=== PATIENT | female | born 1995 | race American Indian/Alaskan Native ===

== ENCOUNTER 2020-08-23 11:55 | Emergency (ER) | payer MEDICAID ==
--- NOTE | 2020-08-23 12:08 | Emergency Department Report ---
Blank Doc - Documentation Documentation: 25-year-old female that presents with vaginal bleeding and pelvic pain. Stated is 6 weeks . This initial assessment/diagnostic orders/clinical plan/treatment(s) is/are subject to change based on patient's health status, clinical progression and re- assessment by fellow clinical providers in the ED. Further treatment and workup at subsequent clinical providers discretion. Patient/guardians urged not to elope from the ED as their condition may be serious if not clinically assessed and managed. Initial orders include: 1- Patient sent to [facility] for further evaluation and treatment 2- labs 3- UA
[2020-08-23 12:11] VITALS: BP 117/78
[2020-08-23 12:58] LABS: Basophils # (Auto) 0.1 K/mm3 (0.0-0.1); Basophils % (Auto) 0.8 % (0.0-1.8); Eosinophils % (Auto) 0.5 % (0.0-4.3); Hematocrit 39.9 % (30.3-42.9); Hemoglobin 13.5 gm/dl (10.1-14.3); Lymphocytes # (Auto) 2.5 K/mm3 (1.2-5.4); Lymphocytes % (Auto) 37.9 % (13.4-35.0); Mean Corpuscular HGB Conc 34 % (30-34); Mean Corpuscular Volume 93 fl (79-97); Monocytes # (Auto) 0.5 K/mm3 (0.0-0.8); Monocytes % (Auto) 8.1 % (0.0-7.3); Platelet Count 294 K/mm3 (140-440); Red Blood Count 4.31 M/mm3 (3.65-5.03); Red Cell Distribution Width 13.2 % (13.2-15.2)
--- NOTE | 2020-08-23 13:50 | Ultrasound Report ---
ULTRASOUND OB LESS THAN 14 WEEKS FETUS ULTRASOUND OB TRANSVAGINAL HISTORY: Pelvic pain and vaginal bleeding during COMPARISON: None. TECHNIQUE: Routine transabdominal and transvaginal OB ultrasound performed. FINDINGS: Uterus: Anteverted and normal size measuring 5.6 x 2.9 x 4.1 cm. Gestational Sac: No gestational sac is visualized in the endometrial canal. The endometrium measures 8 mm in thickness and appears to contain trace fluid. Ovaries: The right ovary is normal in size and appearance with normal blood flow, measuring 2.8 x 2. 2 x 1.7 cm. The left ovary is normal in size and appearance with normal blood flow, measuring 3.1 x 2.0 x 3.2 cm. No adnexal cyst or mass is detected. Additional findings: None. IMPRESSION No intrauterine is visualized at this time. This could represent a very early . Sp ontaneous could also be considered in the appropriate clinical scenario. Please correlate wi th the patient's clinical history and consider close interval follow-up. Signer Name: Pierre Jimenez Jr, MD Signed: 08/23/2020 1:45 PM Workstation Name: [id number]
--- NOTE | 2020-08-23 14:42 | Emergency Department Report ---
ED HPI - General Chief complaint: Vaginal Bleeding Stated complaint: VAG BLEED PREG Time Seen by Provider: 08/23/20 12:06 Source: patient Mode of arrival: Ambulatory Limitations: No Limitations - History of Present Illness Initial comments: Patient is a 25-year-old female presents emergency room with complaints of vaginal spotting that began 3 days ago. She states that she is also been experiencing some lower abdominal cramping. She states her last menstrual cycle is July 13 and she believes she is approximately 6 weeks . She states that she took osww-[id number]-[id number] urine test and it was positive on August 10, 2020. She has not yet seen ETYMOLOGY PROFESSOR or had her confirmed. She denies any heavy bleeding or passing clots. She denies any vomiting, diarrhea, dysuria, abnormal vaginal discharge. She denies any past medical history. No allergies to medications. She states this is her first . She states that she is planning to see [facility] ETYMOLOGY PROFESSOR. - Related Data Allergies Allergy/AdvReac Type Severity Reaction Status Date / Time No Known Allergies Allergy Unverified 08/23/20 12:01 ED Review of Systems ROS: Stated complaint: VAG BLEED PREG Other details as noted in HPI Comment: All other systems reviewed and negative ED Past Medical Hx - Past Medical History Previous Medical History?: Yes Hx Asthma: Yes - Surgical History Past Surgical History?: Yes Additional Surgical History: Tonsilectomy ED Physical Exam - General Limitations: No Limitations General appearance: alert, in no apparent distress - Head Head exam: Present: atraumatic, normocephalic - Eye Eye exam: Present: normal appearance - ENT ENT exam: Present: mucous membranes moist - Respiratory Respiratory exam: Present: normal lung sounds bilaterally. Absent: respiratory distress, wheezes, rales, rhonchi, stridor, chest wall tenderness, accessory muscle use, decreased breath sounds, prolonged expiratory - Cardiovascular Cardiovascular Exam: Present: regular rate, normal rhythm, normal heart sounds. Absent: systolic murmur, diastolic murmur, rubs, gallop - GI/Abdominal GI/Abdominal exam: Present: soft, normal bowel sounds. Absent: distended, tenderness, guarding, rebound, rigid - Neurological Exam Neurological exam: Present: alert, oriented X3 - Psychiatric Psychiatric exam: Present: normal affect, normal mood - Skin Skin exam: Present: warm, dry, intact ED Course Vital Signs 08/23/20 08/23/20 08/23/20 12:07 12:10 15:20 Temperature 98.4 F 98.4 F Pulse Rate 69 Respiratory 19 18 18 Rate Blood Pressure 117/78 [Left] O2 Sat by Pulse 98 100 Oximetry ED Medical Decision Making - Lab Data Result diagrams: 08/23/20 12:14 Lab Results 08/23/20 08/23/20 08/23/20 Range/Units 12:14 12:14 14:37 WBC 6.5 (4.5-11.0) K/mm3 RBC 4.31 (3.65-5.03) M/mm3 Hgb 13.5 (10.1-14.3) gm/dl Hct 39.9 (30.3-42.9) % MCV 93 (79-97) fl MCH 31 (28-32) pg MCHC 34 (30-34) % RDW 13.2 (13.2-15.2) % Plt Count 294 (140-440) K/mm3 Lymph % (Auto) 37.9 H (13.4-35.0) % Freeborn % (Auto) 8.1 H (0.0-7.3) % Eos % (Auto) 0.5 (0.0-4.3) % Baso % (Auto) 0.8 (0.0-1.8) % Lymph # (Auto) 2.5 (1.2-5.4) K/mm3 Freeborn # (Auto) 0.5 (0.0-0.8) K/mm3 Eos # (Auto) 0.0 (0.0-0.4) K/mm3 Baso # (Auto) 0.1 (0.0-0.1) K/mm3 Seg Neutrophils % 52.7 (40.0-70.0) % Seg Neutrophils # 3.4 (1.8-7.7) K/mm3 HCG, Quant 108.8 H (0-4) mIU/mL Urine Color Straw (Yellow) Urine Turbidity Clear (Clear) Urine pH 6.0 (5.0-7.0) Ur Specific Volcano 1.010 (1.003-1.030) Urine Protein <15 mg/dl (Negative) mg/dL Urine Glucose (UA) Neg (Negative) mg/dL Urine Ketones Neg (Negative) mg/dL Urine Blood Neg (Negative) Urine Nitrite Neg (Negative) Urine Bilirubin Neg (Negative) Urine Urobilinogen < 2.0 (<2.0) mg/dL Ur Leukocyte Esterase Neg (Negative) Urine WBC (Auto) < 1.0 (0.0-6.0) /HPF Urine RBC (Auto) 1.0 (0.0-6.0) /HPF U Epithel Cells (Auto) < 1.0 (0-13.0) /HPF Urine Mucus Few /HPF Blood Type 08/23/20 Range/Units Unknown WBC (4.5-11.0) K/mm3 RBC (3.65-5.03) M/mm3 Hgb (10.1-14.3) gm/dl Hct (30.3-42.9) % MCV (79-97) fl MCH (28-32) pg MCHC (30-34) % RDW (13.2-15.2) % Plt Count (140-440) K/mm3 Lymph % (Auto) (13.4-35.0) % Freeborn % (Auto) (0.0-7.3) % Eos % (Auto) (0.0-4.3) % Baso % (Auto) (0.0-1.8) % Lymph # (Auto) (1.2-5.4) K/mm3 Freeborn # (Auto) (0.0-0.8) K/mm3 Eos # (Auto) (0.0-0.4) K/mm3 Baso # (Auto) (0.0-0.1) K/mm3 Seg Neutrophils % (40.0-70.0) % Seg Neutrophils # (1.8-7.7) K/mm3 HCG, Quant (0-4) mIU/mL Urine Color (Yellow) Urine Turbidity (Clear) Urine pH (5.0-7.0) Ur Specific Volcano (1.003-1.030) Urine Protein (Negative) mg/dL Urine Glucose (UA) (Negative) mg/dL Urine Ketones (Negative) mg/dL Urine Blood (Negative) Urine Nitrite (Negative) Urine Bilirubin (Negative) Urine Urobilinogen (<2.0) mg/dL Ur Leukocyte Esterase (Negative) Urine WBC (Auto) (0.0-6.0) /HPF Urine RBC (Auto) (0.0-6.0) /HPF U Epithel Cells (Auto) (0-13.0) /HPF Urine Mucus /HPF Blood Type O POSITIVE Vital Signs 08/23/20 08/23/20 08/23/20 12:07 12:10 15:20 Temperature 98.4 F 98.4 F Pulse Rate 69 Respiratory 19 18 18 Rate Blood Pressure 117/78 [Left] O2 Sat by Pulse 98 100 Oximetry - Radiology Data Radiology results: report reviewed Ordering Physician: ALEXANDRO THOMAS NP Date of Service: 08/23/20 Procedure(s): US OB transvaginal Accession Number(s): [id number] cc: ALEXANDRO THOMAS NP ULTRASOUND OB LESS THAN 14 WEEKS FETUS ULTRASOUND OB TRANSVAGINAL HISTORY: Pelvic pain and vaginal bleeding during COMPARISON: None. TECHNIQUE: Routine transabdominal and transvaginal OB ultrasound performed. FINDINGS: Uterus: Anteverted and normal size measuring 5.6 x 2.9 x 4.1 cm. Gestational Sac: No gestational sac is visualized in the endometrial canal. The endometrium measures 8 mm in thickness and appears to contain trace fluid. Ovaries: The right ovary is normal in size and appearance with normal blood flow, measuring 2.8 x 2.2 x 1.7 cm. The left ovary is normal in size and appearance with normal blood flow, measuring 3.1 x 2.0 x 3.2 cm. No adnexal cyst or mass is detected. Additional findings: None. IMPRESSION No intrauterine is visualized at this time. This could represent a very early . Spontaneous could also be considered in the appropriate clinical scenario. Please correlate with the patient's clinical history and consider close interval follow-up. Signer Name: Pierre Gutiérrez Jr, MD Signed: 08/23/2020 1:45 PM Workstation Name: [id number] Transcribed By: TTR Dictated By: PIERRE GUTIÉRREZ JR, MD Electronically Authenticated By: PIERRE GUTIÉRREZ JR, MD Signed Date/Time: 08/23/201344 DD/ 41 TD/TT: - Medical Decision Making Patient is a 25-year-old female presents emergency room with complaints of vaginal spotting that began 3 days ago. She states that she is also been experiencing some lower abdominal cramping. She states her last menstrual cycle is July 13 and she believes she is approximately 6 weeks . She states that she took [id number] urine test and it was positive on August 10, 2020. She has not yet seen ETYMOLOGY PROFESSOR or had her confirmed. She denies any heavy bleeding or passing clots. She denies any vomi ting, diarrhea, dysuria, abnormal vaginal discharge. She denies any past medical history. No allergies to medications. She states this is her first . She states that she is planning to see [facility] ETYMOLOGY PROFESSOR. Vitals are normal. hCG quant is 108.8. Patient is Rh+. UA is within normal limits. OB US: No intrauterine is visualized at this time. This could represent a very early . Spontaneous could also be considered in the appropriate clinical scenario. Please correlate with the patient's clinical history and consider close interval follow-up. Given that patient has no previous hcg quants recorded, difficult to state if this is an early pregnan cy versus spontaneous miscarriage. Discussed the importance of close follow-up with patient. Discussed all results with patient and answered questions and discussed threatened miscarriage. advised pt Please practice pelvic rest. Please increase your water intake. May take Tylenol for any cramping. Follow- up with ETYMOLOGY PROFESSOR. You need to have a repeat hCG quant in 2 days. Today, 08/23/2020 your hCG quant is 108. If you are unable to follow-up with your ETYMOLOGY PROFESSOR, may return to the emergency room. Return to emergency room for any new or worsening symptoms. - Differential Diagnosis Spontaneous/threatened miscarriage, IUP, ectopic, subchorionic hemorrhage Critical care attestation.: If time is entered above; I have spent that time in minutes in the direct care of this critically ill patient, excluding procedure time. ED Disposition Clinical Impression: Threatened miscarriage Disposition: DC-01 TO HOME OR SELFCARE Is pt being admited?: No Does the pt Need Aspirin: No Condition: Stable Instructions: Threatened Miscarriage (ED) Additional Instructions: Please practice pelvic rest. Please increase your water intake. May take Tylenol for any cramping. Follow-up with ETYMOLOGY PROFESSOR. You need to have a repeat hCG quant in 2 days. Today, 08/23/2020 your hCG quant is 108. If you are unable to follow-up with your ETYMOLOGY PROFESSOR, may return to the emergency room. Return to emergency room for any new or worsening symptoms. Referrals: [facility] [Provider Group] - 2-3 Days Time of Disposition: 15:10 Print Language: TELUGU
[2020-08-23 14:59] LABS: Bilirubin,Urine NEG (Negative); Blood,Urine NEG (Negative); Color,Urine Straw (Yellow); Mucus,Urine FEW /HPF; Protein,Urine <15 mg/dL mg/dL (Negative); Urobilinogen,Urine < 2.0 mg/dL (<2.0); WBC,Urine < 1.0 /HPF (0.0-6.0)
== END 2020-08-23 15:31 | disposition home or self-care (01) ==
LOC: ED 11:55
DX: O20.0 Threatened abortion (principal); O99.511 Diseases of the respiratory system complicating pregnancy, first trimester; J45.909 Unspecified asthma, uncomplicated; Z3A.01 Less than 8 weeks gestation of pregnancy; Z90.49 Acquired absence of other specified parts of digestive tract
CPT/HCPCS: 36415; 76801; 76817; 81001; 84702; 85025; 86900; 86901